=== PATIENT | male | born 1975 | race Caucasian/White ===

== ENCOUNTER 2019-02-14 11:12 | Emergency (ER) | payer SELFPAY ==
[~2019-02-14] VITALS: Ht 175.2 cm; Wt 74.8 kg
== END 2019-02-14 13:39 | disposition home or self-care (01) ==
LOC: ED 11:12
DX: S16.1XXA Strain of muscle, fascia and tendon at neck level, initial encounter (principal); S20.212A Contusion of left front wall of thorax, initial encounter; S59.901A Unspecified injury of right elbow, initial encounter; R51 Headache; R42 Dizziness and giddiness; F17.200 Nicotine dependence, unspecified, uncomplicated; Y08.89XA Assault by other specified means, initial encounter; Y93.89 Activity, other specified; Y92.89 Other specified places as the place of occurrence of the external cause; Y99.8 Other external cause status

== ENCOUNTER 2022-02-24 23:25 | Emergency (ER) | payer MEDICARE, OTHER ==
[2022-02-25 01:00] LABS: BASO % 0.3 % (0.0-1.0); EOS # 0.1 10*3/uL (0.0-0.4); EOS % 0.9 % (1.0-4.0); HEMATOCRIT 38.2 % (42.0-52.0); LYMPH # 2.1 10*3/uL (1.3-4.4); LYMPH % 20.8 % (27.0-41.0); MEAN CELL VOLUME 85.5 fl (80.0-94.0); MEAN CORPUSCULAR HGB 29.3 pg (27.0-31.0); MEAN CORPUSCULAR HGB CONC 34.3 g/dl (33.0-37.0); MEAN PLATELET VOLUME 10.2 fl (9.6-12.3); MONO # 0.7 10*3/uL (0.1-1.0); MONO % 7.1 % (3.0-9.0); NEUT % 70.6 % (47.0-73.0); PLATELET COUNT AUTOMATED 227 10*3/uL (130-400); RED BLOOD COUNT 4.47 10*6/uL (4.50-5.90); RED CELL DISTRI WIDTH 13.9 % (0-14.5); WHITE BLOOD COUNT 9.9 10*3/uL (4.8-10.8)
[2022-02-25 01:01] LABS: BILIRUBIN Negative (Negative); BLOOD Negative (Negative); COLOR Yellow (Yellow); GLUCOSE Negative (Negative); KETONE Negative (Negative); LEUKO ESTERASE Negative (Negative); NITRITE Negative (Negative); SPECIFIC GRAVITY <= 1.005 (1.001-1.030); UROBILINOGEN 0.2 E.U./dl (0.0-1.0)
[2022-02-25 01:03] LABS: CLARITY Clear (Clear)
[2022-02-25 01:09] LABS: URINE AMPHETAMINES < 1000 (1000ng/ml); URINE BARBITURATES < 200 (200ng/ml); URINE BENZODIAZEPINES < 200 (200ng/ml); URINE CANNABINOIDS (THC) > 50 (50ng/ml); URINE COCAINE < 300 (300ng/ml); URINE METHADONE < 300 (300ng/ml); URINE OPIATES < 300 (300ng/ml)
[2022-02-25 01:15] LABS: ALKALINE PHOSPHATASE 57 U/L (45-117); BUN 8 mg/dl (7-24); CHLORIDE 107 mmol/L (98-107); CREATININE 0.82 mg/dL (0.70-1.30); POTASSIUM 3.5 mmol/L (3.5-5.1); SGOT/AST 12 IU/L (3-35); SGPT/ALT 19 U/L (12-78); SODIUM 139 mmol/L (136-145); TOTAL PROTEIN 6.3 gm/dL (6.4-8.2)
[2022-02-25 01:22] LABS: URINE PHENCYCLIDINE < 25 (25ng/ml)
[2022-02-25 01:27] LABS: EPITHELIAL CELLS 0-2; WBC 0-2 wbc/hpf (0-5)
[2022-02-25] MEDS ORDERED: CYCLOBENZAPRINE10 MG PO (04:08)
== END 2022-02-25 04:19 | disposition home or self-care (01) ==
LOC: ED 23:25
PROVIDERS: Emergency Medicine
DX: M54.50 Low back pain, unspecified (principal); R11.0 Nausea; E78.00 Pure hypercholesterolemia, unspecified

== ENCOUNTER 2022-03-24 14:36 | Emergency (ER) | payer OTHER ==
[~2022-03-24] VITALS: Ht 175.2 cm; Wt 79.4 kg
[~2022-03-24 14:36] MED LIST: CLOPIDOGREL75 MG PO; CYCLOBENZAPRINE10 MG PO; DICYCLOMINE HYD20 MG PO; GABAPENTIN100 M2 PO; ONDANSETRON HYDR4 M1 PO; QUETIAPINE FUMA50 M1 PO
[2022-03-24 16:01] LABS: BASO % 0.3 % (0.0-1.0); EOS # 0.1 10*3/uL (0.0-0.4); EOS % 0.8 % (1.0-4.0); HEMATOCRIT 41.2 % (42.0-52.0); LYMPH # 1.1 10*3/uL (1.3-4.4); LYMPH % 10.4 % (27.0-41.0); MEAN CELL VOLUME 86.6 fl (80.0-94.0); MEAN CORPUSCULAR HGB CONC 33.5 g/dl (33.0-37.0); MEAN PLATELET VOLUME 9.9 fl (9.6-12.3); MONO # 0.7 10*3/uL (0.1-1.0); MONO % 6.3 % (3.0-9.0); NEUT # 8.6 10*3/uL (2.3-7.9); NEUT % 81.9 % (47.0-73.0); PLATELET COUNT AUTOMATED 247 10*3/uL (130-400); RED BLOOD COUNT 4.76 10*6/uL (4.50-5.90); RED CELL DISTRI WIDTH 14.3 % (0-14.5); WHITE BLOOD COUNT 10.5 10*3/uL (4.8-10.8)
[2022-03-24 16:17] LABS: ALKALINE PHOSPHATASE 62 U/L (45-117); BUN 16 mg/dl (7-24); CHLORIDE 105 mmol/L (98-107); CPK 59 U/L (39-308); CREATININE 1.23 mg/dL (0.70-1.30); LIPASE 230 U/L (73-393); POTASSIUM 3.8 mmol/L (3.5-5.1); SGOT/AST 16 IU/L (3-35); SGPT/ALT 31 U/L (12-78); SODIUM 138 mmol/L (136-145); TOTAL PROTEIN 6.7 gm/dL (6.4-8.2)
[2022-03-24 18:15] LABS: BILIRUBIN Negative (Negative); BLOOD Negative (Negative); CLARITY Clear (Clear); COLOR Yellow (Yellow); GLUCOSE 3+ (Negative); KETONE Trace (Negative); LEUKO ESTERASE Negative (Negative); NITRITE Negative (Negative); PH 5.5 (4.5-8.0); SPECIFIC GRAVITY >= 1.030 (1.001-1.030)
[2022-03-24 18:27] LABS: MUCOUS 2+
[2022-03-24 18:28] LABS: BACTERIA 2+
[2022-03-24 18:29] LABS: RBC 0-2 rbc/hpf (0-2)
== END 2022-03-24 19:27 | disposition home or self-care (01) ==
LOC: ED 14:36
PROVIDERS: Physician Assistant
DX: M54.50 Low back pain, unspecified (principal); Z79.899 Other long term (current) drug therapy; F17.210 Nicotine dependence, cigarettes, uncomplicated

== ENCOUNTER → 2022-03-29 | Outpatient (CLI) | payer OTHER | LOC: RAD 12:15 | PROVIDERS: ATTEND Family Medicine | DX: M51.34 Other intervertebral disc degeneration, thoracic region (principal); M25.78 Osteophyte, vertebrae ==

== ENCOUNTER 2022-04-19 00:36 | Inpatient (IN) | payer OTHER ==
[~2022-04-19] VITALS: Ht 175.3 cm; Wt 77.6 kg
[2022-04-19] VITALS (8 sets, daily range): BP systolic 100–117; BP diastolic 59–80
[2022-04-19 01:02] LABS: BASO # 0.1 10*3/uL (0.0-0.1); BASO % 0.3 % (0.0-1.0); LYMPH # 2.4 10*3/uL (1.3-4.4); LYMPH % 15.8 % (27.0-41.0); MEAN CELL VOLUME 85.7 fl (80.0-94.0); MEAN CORPUSCULAR HGB 29.3 pg (27.0-31.0); MEAN CORPUSCULAR HGB CONC 34.2 g/dl (33.0-37.0); MEAN PLATELET VOLUME 9.8 fl (9.6-12.3); MONO # 1.1 10*3/uL (0.1-1.0); MONO % 7.2 % (3.0-9.0); NEUT # 11.5 10*3/uL (2.3-7.9); NEUT % 76.4 % (47.0-73.0); PLATELET COUNT AUTOMATED 339 10*3/uL (130-400); RED CELL DISTRI WIDTH 13.9 % (0-14.5); WHITE BLOOD COUNT 15.1 10*3/uL (4.8-10.8)
[2022-04-19 01:14] LABS: ACT PARTIAL THROMBO TIME 25.2 SECONDS (20.0-32.1); INTERNATIONAL NORM RATIO 1.1 (2.0-3.5)
[2022-04-19 01:18] LABS: CREATININE 2.33 mg/dL (0.70-1.30); POTASSIUM 3.7 mmol/L (3.5-5.1); TOTAL PROTEIN 8.6 gm/dL (6.4-8.2)
[2022-04-19 04:39] LABS: BILIRUBIN 1+ (Negative); BLOOD Trace-Lysed (Negative); CLARITY Cloudy (Clear); COLOR Dark Yellow (Yellow); GLUCOSE Negative (Negative); KETONE 1+ (Negative); LEUKO ESTERASE Trace (Negative); NITRITE Negative (Negative); SPECIFIC GRAVITY >= 1.030 (1.001-1.030)
[2022-04-19 04:48] LABS: URINE AMPHETAMINES < 1000 (1000ng/ml); URINE BARBITURATES < 200 (200ng/ml); URINE BENZODIAZEPINES < 200 (200ng/ml); URINE CANNABINOIDS (THC) > 50 (50ng/ml); URINE COCAINE > 300 (300ng/ml); URINE METHADONE < 300 (300ng/ml); URINE OPIATES < 300 (300ng/ml); URINE PHENCYCLIDINE < 25 (25ng/ml)
[2022-04-19 04:49] LABS: HYALINE CAST TNTC
[2022-04-19 04:50] LABS: BACTERIA TRACE; RBC 16-20 rbc/hpf (0-2)
[2022-04-19 06:25] LABS: BASO # 0.1 10*3/uL (0.0-0.1); BASO % 0.4 % (0.0-1.0); EOS # 0.1 10*3/uL (0.0-0.4); EOS % 0.4 % (1.0-4.0); HEMATOCRIT 43.9 % (42.0-52.0); LYMPH # 3.1 10*3/uL (1.3-4.4); LYMPH % 23.1 % (27.0-41.0); MEAN CELL VOLUME 86.9 fl (80.0-94.0); MEAN CORPUSCULAR HGB 29.3 pg (27.0-31.0); MEAN CORPUSCULAR HGB CONC 33.7 g/dl (33.0-37.0); MEAN PLATELET VOLUME 9.9 fl (9.6-12.3); MONO # 1.2 10*3/uL (0.1-1.0); MONO % 9.1 % (3.0-9.0); NEUT # 8.9 10*3/uL (2.3-7.9); NEUT % 66.6 % (47.0-73.0); PLATELET COUNT AUTOMATED 274 10*3/uL (130-400); RED BLOOD COUNT 5.05 10*6/uL (4.50-5.90); RED CELL DISTRI WIDTH 14.2 % (0-14.5); WHITE BLOOD COUNT 13.4 10*3/uL (4.8-10.8)
[2022-04-19 06:40] LABS: ACT PARTIAL THROMBO TIME 25.9 SECONDS (20.0-32.1)
[2022-04-19 06:41] LABS: ALKALINE PHOSPHATASE 69 U/L (45-117); BUN 19 mg/dl (7-24); CHLORIDE 104 mmol/L (98-107); CREATININE 1.49 mg/dL (0.70-1.30); LIPASE 310 U/L (73-393); POTASSIUM 3.4 mmol/L (3.5-5.1); SGPT/ALT 21 U/L (12-78); SODIUM 136 mmol/L (136-145); TOTAL PROTEIN 7.5 gm/dL (6.4-8.2)
[2022-04-19] MEDS ORDERED: NEURONTIN300 MG PO (14:15)
[2022-04-20] VITALS: BP 106/63
[2022-04-20 07:42] LABS: BASO # 0.1 10*3/uL (0.0-0.1); BASO % 0.8 % (0.0-1.0); EOS # 0.2 10*3/uL (0.0-0.4); EOS % 1.6 % (1.0-4.0); HEMATOCRIT 39.1 % (42.0-52.0); LYMPH % 21.7 % (27.0-41.0); MEAN CELL VOLUME 89.9 fl (80.0-94.0); MEAN CORPUSCULAR HGB 30.1 pg (27.0-31.0); MEAN CORPUSCULAR HGB CONC 33.5 g/dl (33.0-37.0); MONO # 0.8 10*3/uL (0.1-1.0); MONO % 8.1 % (3.0-9.0); NEUT # 6.3 10*3/uL (2.3-7.9); NEUT % 67.6 % (47.0-73.0); PLATELET COUNT AUTOMATED 215 10*3/uL (130-400); RED BLOOD COUNT 4.35 10*6/uL (4.50-5.90); WHITE BLOOD COUNT 9.3 10*3/uL (4.8-10.8)
[2022-04-20 07:55] LABS: BUN 15 mg/dl (7-24); CHLORIDE 103 mmol/L (98-107); CREATININE 1.11 mg/dL (0.70-1.30); POTASSIUM 4.5 mmol/L (3.5-5.1); SODIUM 133 mmol/L (136-145)
[2022-04-20 08:00] VITALS: BP 99/65
== END 2022-04-20 10:54 | disposition home or self-care (01) | DRG 682 ==
LOC: ED 00:36 → 5E 05:04 → EDHOLD 05:04 → 5E 07:33
PROVIDERS: Internal Medicine; ADMIT Family Medicine; ATTEND Family Medicine
DX: N17.0 Acute kidney failure with tubular necrosis (principal); R65.11 Systemic inflammatory response syndrome (SIRS) of non-infectious origin with acute organ dysfunction; E87.1 Hypo-osmolality and hyponatremia; C82.90 Follicular lymphoma, unspecified, unspecified site; I73.9 Peripheral vascular disease, unspecified; F14.90 Cocaine use, unspecified, uncomplicated; M54.50 Low back pain, unspecified; G89.29 Other chronic pain; E87.8 Other disorders of electrolyte and fluid balance, not elsewhere classified; R73.9 Hyperglycemia, unspecified; E83.41 Hypermagnesemia; E83.52 Hypercalcemia; F17.219 Nicotine dependence, cigarettes, with unspecified nicotine-induced disorders; F12.90 Cannabis use, unspecified, uncomplicated; E86.0 Dehydration; Z95.820 Peripheral vascular angioplasty status with implants and grafts; Z80.8 Family history of malignant neoplasm of other organs or systems

== ENCOUNTER 2022-04-26 19:36 | Emergency (ER) | payer OTHER ==
[~2022-04-26 19:36] MED LIST changes: +NEURONTIN300 MG PO
[2022-04-26 20:50] LABS: BASO # 0.1 10*3/uL (0.0-0.1); BASO % 0.6 % (0.0-1.0); EOS # 0.1 10*3/uL (0.0-0.4); EOS % 0.9 % (1.0-4.0); HEMATOCRIT 43.9 % (42.0-52.0); LYMPH # 3.2 10*3/uL (1.3-4.4); LYMPH % 33.9 % (27.0-41.0); MEAN CELL VOLUME 86.1 fl (80.0-94.0); MEAN CORPUSCULAR HGB 29.6 pg (27.0-31.0); MEAN CORPUSCULAR HGB CONC 34.4 g/dl (33.0-37.0); MEAN PLATELET VOLUME 9.7 fl (9.6-12.3); MONO % 10.4 % (3.0-9.0); NEUT # 5.1 10*3/uL (2.3-7.9); NEUT % 53.9 % (47.0-73.0); PLATELET COUNT AUTOMATED 250 10*3/uL (130-400); RED CELL DISTRI WIDTH 13.5 % (0-14.5); WHITE BLOOD COUNT 9.5 10*3/uL (4.8-10.8)
[2022-04-26 21:00] LABS: URINE AMPHETAMINES Negative (1000ng/ml); URINE BARBITURATES Negative (200ng/ml); URINE BENZODIAZEPINES Negative (200ng/ml); URINE COCAINE Negative (300ng/ml); URINE METHADONE Negative (300ng/ml); URINE OPIATES Negative (300ng/ml); URINE PHENCYCLIDINE Negative (25ng/ml)
[2022-04-26 21:01] LABS: URINE CANNABINOIDS (THC) Positive (50ng/ml)
[2022-04-26 21:09] LABS: ALKALINE PHOSPHATASE 58 U/L (46-116); BUN 8 mg/dl (9-23); CHLORIDE 97 mmol/L (98-107); CREATININE 1.25 mg/dL (0.70-1.30); POTASSIUM 3.5 mmol/L (3.4-5.1); SGPT/ALT 14 U/L (10-49); SODIUM 135 mmol/L (136-145); TOTAL PROTEIN 7.1 gm/dL (6.0-8.0)
== END 2022-04-27 03:06 | disposition home or self-care (01) ==
LOC: ED 19:36
PROVIDERS: Emergency Medicine
DX: R11.10 Vomiting, unspecified (principal); M54.50 Low back pain, unspecified; Z79.899 Other long term (current) drug therapy; F17.210 Nicotine dependence, cigarettes, uncomplicated

== ENCOUNTER 2022-05-18 23:21 | Emergency (ER) | payer OTHER ==
[~2022-05-18] VITALS: Ht 175.2 cm; Wt 79.8 kg
== END 2022-05-19 03:31 | disposition left against medical advice (07) ==
LOC: ED 23:21
DX: M54.50 Low back pain, unspecified (principal); Z79.899 Other long term (current) drug therapy; Z87.891 Personal history of nicotine dependence

== ENCOUNTER → 2022-06-25 | Outpatient (CLI) | payer OTHER | END | disposition home or self-care (01) | LOC: MRI 06-10 10:00 | PROVIDERS: ATTEND Family Medicine | DX: M54.9 Dorsalgia, unspecified (principal) ==

== ENCOUNTER 2023-04-26 23:29 | Emergency (ER) | payer OTHER ==
[2023-04-27 00:20] LABS: BASO % 0.1 % (0.0-1.0); EOS # 0.1 10*3/uL (0.0-0.4); EOS % 0.4 % (1.0-4.0); HEMATOCRIT 44.5 % (42.0-52.0); LYMPH # 0.9 10*3/uL (1.3-4.4); LYMPH % 5.9 % (27.0-41.0); MEAN CELL VOLUME 82.4 fl (80.0-94.0); MEAN CORPUSCULAR HGB 29.3 pg (27.0-31.0); MEAN CORPUSCULAR HGB CONC 35.5 g/dl (33.0-37.0); MEAN PLATELET VOLUME 10.2 fl (9.6-12.3); MONO # 0.8 10*3/uL (0.1-1.0); MONO % 5.2 % (3.0-9.0); NEUT # 13.6 10*3/uL (2.3-7.9); PLATELET COUNT AUTOMATED 176 10*3/uL (130-400); RED CELL DISTRI WIDTH 12.7 % (0-14.5); WHITE BLOOD COUNT 15.4 10*3/uL (4.8-10.8)
[2023-04-27 00:41] LABS: ALKALINE PHOSPHATASE 70 U/L (46-116); BUN 16 mg/dl (9-23); CHLORIDE 97 mmol/L (98-107); LIPASE 27 U/L (12-53); POTASSIUM 3.4 mmol/L (3.4-5.1); SGPT/ALT 21 U/L (5-49); TOTAL PROTEIN 7.9 gm/dL (6.0-8.0)
[2023-04-27 00:49] LABS: ACT PARTIAL THROMBO TIME 25.4 SECONDS (20.0-32.1)
[2023-04-27 01:07] LABS: BILIRUBIN 2+ (Negative); BLOOD Trace-Lysed (Negative); CLARITY Cloudy (Clear); COLOR Orange (Yellow); GLUCOSE Negative (Negative); KETONE 1+ (Negative); LEUKO ESTERASE Trace (Negative); NITRITE Positive (Negative); SPECIFIC GRAVITY >= 1.030 (1.001-1.030)
[2023-04-27 01:14] LABS: URINE AMPHETAMINES Negative (1000ng/ml); URINE BARBITURATES Negative (200ng/ml); URINE BENZODIAZEPINES Positive (200ng/ml); URINE CANNABINOIDS (THC) Positive (50ng/ml); URINE COCAINE Positive (300ng/ml); URINE METHADONE Negative (300ng/ml); URINE OPIATES Negative (300ng/ml); URINE PHENCYCLIDINE Negative (25ng/ml)
[2023-04-27 01:17] LABS: BACTERIA 2+; CALCIUM OXALATE CRYSTALS 1+; MUCOUS 1+
== END 2023-04-27 06:25 | disposition short-term general hospital (02) ==
LOC: ED 23:29
PROVIDERS: Internal Medicine
DX: I70.90 Unspecified atherosclerosis (principal); Z98.890 Other specified postprocedural states; F14.10 Cocaine abuse, uncomplicated; F17.210 Nicotine dependence, cigarettes, uncomplicated; F12.90 Cannabis use, unspecified, uncomplicated; Z79.899 Other long term (current) drug therapy

== ENCOUNTER 2023-05-18 08:05 | Emergency (ER) | payer OTHER ==
[~2023-05-18] VITALS: Wt 76.2 kg
[2023-05-18 08:53] LABS: BASO # 0.1 10*3/uL (0.0-0.1); BASO % 0.6 % (0.0-1.0); EOS # 0.2 10*3/uL (0.0-0.4); EOS % 2.9 % (1.0-4.0); HEMATOCRIT 30.6 % (42.0-52.0); LYMPH # 1.3 10*3/uL (1.3-4.4); LYMPH % 14.8 % (27.0-41.0); MEAN CELL VOLUME 90.3 fl (80.0-94.0); MEAN CORPUSCULAR HGB 28.3 pg (27.0-31.0); MEAN CORPUSCULAR HGB CONC 31.4 g/dl (33.0-37.0); MONO # 0.6 10*3/uL (0.1-1.0); MONO % 7.6 % (3.0-9.0); NEUT # 6.2 10*3/uL (2.3-7.9); NEUT % 73.6 % (47.0-73.0); PLATELET COUNT AUTOMATED 327 10*3/uL (130-400); RED BLOOD COUNT 3.39 10*6/uL (4.50-5.90); RED CELL DISTRI WIDTH 13.9 % (0-14.5); WHITE BLOOD COUNT 8.4 10*3/uL (4.8-10.8)
[2023-05-18 09:04] LABS: ACT PARTIAL THROMBO TIME 26.6 SECONDS (20.0-32.1)
[2023-05-18 09:21] LABS: ALKALINE PHOSPHATASE 53 U/L (46-116); BUN 6 mg/dl (9-23); CHLORIDE 102 mmol/L (98-107); LIPASE 26 U/L (12-53); POTASSIUM 3.9 mmol/L (3.4-5.1); SGPT/ALT 15 U/L (5-49); TOTAL PROTEIN 6.1 gm/dL (6.0-8.0)
[2023-05-18 10:08] LABS: BILIRUBIN Negative (Negative); BLOOD Negative (Negative); CLARITY Clear (Clear); COLOR Yellow (Yellow); GLUCOSE Negative (Negative); KETONE Negative (Negative); LEUKO ESTERASE Negative (Negative); NITRITE Negative (Negative); SPECIFIC GRAVITY <= 1.005 (1.001-1.030)
[2023-05-18 10:26] LABS: PH 8.5 (4.5-8.0)
[2023-05-18 10:28] LABS: BACTERIA 1+; EPITHELIAL CELLS 0-2; WBC 0-2 wbc/hpf (0-5)
== END 2023-05-18 11:31 | disposition home or self-care (01) ==
LOC: ED 08:05
PROVIDERS: Internal Medicine
DX: L53.9 Erythematous condition, unspecified (principal); Z48.01 Encounter for change or removal of surgical wound dressing; F17.210 Nicotine dependence, cigarettes, uncomplicated; Z95.828 Presence of other vascular implants and grafts

== ENCOUNTER 2023-05-18 12:19 | Emergency (ER) | payer OTHER | END 2023-05-18 12:32 | disposition left against medical advice (07) | LOC: ED 12:19 | DX: M79.671 Pain in right foot (principal); M79.672 Pain in left foot; Z53.21 Procedure and treatment not carried out due to patient leaving prior to being seen by health care provider ==

== ENCOUNTER 2023-05-20 20:38 | Emergency (ER) | payer OTHER ==
[2023-05-20] MEDS ORDERED: LIPITOR40 MG PO (20:47)
[2023-05-20] MEDS ORDERED: COL-RITE100 M1 PO (20:47)
[2023-05-20] MEDS ORDERED: OXYCODONE HCL5 M1 PO (20:49)
[2023-05-20] MEDS ORDERED: ATIVAN0.5 MG PO (20:51)
[2023-05-20 21:22] LABS: BASO # 0.1 10*3/uL (0.0-0.1); BASO % 0.8 % (0.0-1.0); EOS # 0.5 10*3/uL (0.0-0.4); HEMATOCRIT 33.3 % (42.0-52.0); LYMPH # 2.4 10*3/uL (1.3-4.4); LYMPH % 23.6 % (27.0-41.0); MEAN CELL VOLUME 86.9 fl (80.0-94.0); MEAN CORPUSCULAR HGB 28.5 pg (27.0-31.0); MEAN CORPUSCULAR HGB CONC 32.7 g/dl (33.0-37.0); MEAN PLATELET VOLUME 9.2 fl (9.6-12.3); MONO # 1.1 10*3/uL (0.1-1.0); MONO % 10.9 % (3.0-9.0); NEUT % 59.4 % (47.0-73.0); PLATELET COUNT AUTOMATED 406 10*3/uL (130-400); RED BLOOD COUNT 3.83 10*6/uL (4.50-5.90); RED CELL DISTRI WIDTH 14.1 % (0-14.5)
[2023-05-20 21:43] LABS: ALKALINE PHOSPHATASE 50 U/L (46-116); BUN 8 mg/dl (9-23); CHLORIDE 98 mmol/L (98-107); LIPASE 38 U/L (12-53); POTASSIUM 2.9 mmol/L (3.4-5.1); SGPT/ALT 14 U/L (5-49); TOTAL PROTEIN 6.6 gm/dL (6.0-8.0)
[2023-05-20 21:44] LABS: ETHYL ALCOHOL < 3.0 mg/dl (<3)
[2023-05-21 00:36] LABS: BILIRUBIN Negative (Negative); BLOOD Negative (Negative); CLARITY Clear (Clear); COLOR Yellow (Yellow); GLUCOSE Negative (Negative); KETONE Negative (Negative); LEUKO ESTERASE Trace (Negative); NITRITE Negative (Negative)
[2023-05-21 00:43] LABS: URINE AMPHETAMINES Negative (1000ng/ml); URINE BARBITURATES Negative (200ng/ml); URINE BENZODIAZEPINES Negative (200ng/ml); URINE CANNABINOIDS (THC) Positive (50ng/ml); URINE COCAINE Negative (300ng/ml); URINE METHADONE Negative (300ng/ml); URINE OPIATES Negative (300ng/ml); URINE PHENCYCLIDINE Negative (25ng/ml)
[2023-05-21 01:00] LABS: RBC 0-2 rbc/hpf (0-2)
== END 2023-05-21 09:10 | disposition left against medical advice (07) ==
LOC: ED 20:38
PROVIDERS: Family Medicine
DX: R10.9 Unspecified abdominal pain (principal); Z98.890 Other specified postprocedural states; F17.210 Nicotine dependence, cigarettes, uncomplicated; F12.90 Cannabis use, unspecified, uncomplicated; F14.10 Cocaine abuse, uncomplicated; Z53.29 Procedure and treatment not carried out because of patient's decision for other reasons; Z79.899 Other long term (current) drug therapy